=== PATIENT | female | born 1985 | race Asian ===

== ENCOUNTER 2019-07-19 14:46 | Emergency (ER) | payer BC ==
[~2019-07-19] VITALS: Ht 152.4 cm; Wt 74.1 kg
[2019-07-19 14:57] VITALS: BP 108/70; TEMP 97.9
[2019-07-19 17:34] LABS: BASO % 0.2 % (0.0-2.0); EOS # 0.1 (0.0-0.7); EOS % 0.9 % (0-4.0); GRAN # 8.7 (1.4-6.5); GRAN % 86.9 % (42.2-75.2); HEMATOCRIT 38.4 % (37.0-47.0); HEMOGLOBIN 12.6 g/dl (12.5-16.0); LYMPH # 0.8 (1.2-3.4); LYMPH % 7.7 % (20.0-51.0); MEAN CELL VOLUME 90 fl (80.0-100.0); MEAN CORPUSCULAR HEMOGLOBIN 29 pg (27.0-31.0); MEAN CORPUSCULAR HGB CONC 33 g/dl (33.0-37.0); MONO # 0.3 (0.1-0.6); MONO % 3.4 % (1.7-9.3); PLATELET COUNT 222 K/mm3 (130-400); RED BLOOD COUNT 4.28 M/mm3 (4.10-5.30); REDCELL DISTRIBUTION WIDTH-CV 13.5 % (11.5-14.5)
[2019-07-19] MEDS ORDERED: PRENATAL TABLET PO (17:40)
[2019-07-19 17:48] LABS: ALBUMIN 3.9 gm/dL (3.5-5.0); BILIRUBIN,TOTAL 0.7 mg/dL (0.0-1.0); CREATININE, serum 0.36 (0.52-1.25); TOTAL PROTEIN 7.4 gm/dL (6.4-8.2)
[2019-07-19 18:47] LABS: COLLECTION METHOD CLEAN CATCH
[2019-07-19 18:55] LABS: MUCOUS Present /lpf; PH 6 (5-8); URINE APPEARANCE Hazy; URINE BACTERIA Rare /hpf; URINE BILIRUBIN Negative (NEGATIVE); URINE BLOOD Negative (NEGATIVE); URINE COLOR Amber; URINE GLUCOSE Negative (NEGATIVE); URINE KETONE 2+ (NEGATIVE); URINE LEUKOCYTE ESTERASE Negative (NEGATIVE); URINE NITRATE Negative (NEGATIVE); URINE PROTEIN(semi-quant) 1+ (NEGATIVE)
[2019-07-19] MEDS ORDERED: MACROBID 1100 MG/CAP PO (19:36)
[2019-07-19] MEDS ORDERED: PHENERGAN 25 TA25 MG PO (19:36)
[2019-07-19] MEDS ORDERED: ZOFRAN 4MG T4 MG/TAB PO (19:36)
[2019-07-19 19:45] VITALS: PULSE 98
== END 2019-07-19 19:45 | disposition home or self-care (01) ==
LOC: COL.ER 14:46
PROVIDERS: Emergency Medicine
DX: O21.9 Vomiting of pregnancy, unspecified (principal); O23.593 Infection of other part of genital tract in pregnancy, third trimester; R82.71 Bacteriuria; Z3A.30 30 weeks gestation of pregnancy
CPT/HCPCS: J2405; J7030

== ENCOUNTER → 2019-07-31 | Outpatient (CLI) | payer BC ==
[~2019-07-31] MED LIST: MACROBID 1100 MG/CAP PO; MOTRIN 800800 MG/TAB PO; PERCOCET 325 MG1 TA2 PO; PHENERGAN 25 TA25 MG PO; PRENATAL TABLET PO; PRIL40 PO; ZOFRAN 4MG T4 MG/TAB PO
== END ==
LOC: DIA.ED
DX: O24.419 Gestational diabetes mellitus in pregnancy, unspecified control (principal)
CPT/HCPCS: G0108

== ENCOUNTER → 2019-08-14 | Outpatient (CLI) | payer BC | LOC: DIA.ED 11:42 | DX: O24.419 Gestational diabetes mellitus in pregnancy, unspecified control (principal); Z79.4 Long term (current) use of insulin | CPT/HCPCS: G0108 ==

== ENCOUNTER 2019-08-29 13:20 | Outpatient (CLI) | payer BC ==
[~2019-08-29] VITALS: Ht 152.4 cm; Wt 75.5 kg
--- NOTE | 2019-08-29 13:15 | NUR ---
Patient arrives ambulatory with spouse with complaints of "constant abdominal pain since yesterday". Patient states the pain is always the same and does not come and go. Patient denies ROM or vaginal bleeding and reports normal movement. Patient states she has had three normal bowel movements today, no constipation. Patient changes into gown, EFM explained and placed. VSS. 1320- SVE /-3, unchanged from last office exam. Patient repositioned WL. Assessment completed. When patient winces with pain RN palpates abdomen, noted soft. See physician notification. Patient updated on plan of care, Tylenol given per order. See EMAR.
[~2019-08-29 13:20] MED LIST changes: -MOTRIN 800800 MG/TAB PO; -PERCOCET 325 MG1 TA2 PO; -PRIL40 PO
[2019-08-29 13:25] VITALS: BP 120/80; PULSE 72; TEMP 97.5
[2019-08-29 14:00] VITALS: BP 120/80; PULSE 72; TEMP 97.5
[2019-08-29 14:01] LABS: COLLECTION METHOD CLEAN CATCH
[2019-08-29 14:05] LABS: BASO % 0.2 % (0.0-2.0); EOS # 0.8 (0.0-0.7); EOS % 8.8 % (0-4.0); GRAN # 6.4 (1.4-6.5); GRAN % 68.4 % (42.2-75.2); HEMATOCRIT 42.5 % (37.0-47.0); LYMPH # 1.5 (1.2-3.4); LYMPH % 16.4 % (20.0-51.0); MEAN CELL VOLUME 89 fl (80.0-100.0); MEAN CORPUSCULAR HEMOGLOBIN 29 pg (27.0-31.0); MEAN CORPUSCULAR HGB CONC 33 g/dl (33.0-37.0); MEAN PLATELET VOLUME 10.9 fl (7.4-10.4); MONO # 0.6 (0.1-0.6); MONO % 5.9 % (1.7-9.3); PLATELET COUNT 245 K/mm3 (130-400); REDCELL DISTRIBUTION WIDTH-CV 13.5 % (11.5-14.5)
[2019-08-29 14:15] LABS: ALBUMIN 3.8 gm/dL (3.5-5.0); BILIRUBIN,TOTAL 0.4 mg/dL (0.0-1.0); CALCIUM 9.5 mg/dL (8.4-10.2); CREATININE, serum 0.44 (0.52-1.25); POTASSIUM 4.1 mmol/L (3.4-5.0); TOTAL PROTEIN 7.3 gm/dL (6.4-8.2)
[2019-08-29 14:16] LABS: PH 7 (5-8); SQUAMOUS EPITHELIAL 0-2 /hpf; URINE APPEARANCE Clear; URINE BACTERIA Rare /hpf; URINE BILIRUBIN Negative (NEGATIVE); URINE BLOOD Negative (NEGATIVE); URINE COLOR Straw; URINE GLUCOSE Negative (NEGATIVE); URINE KETONE Negative (NEGATIVE); URINE LEUKOCYTE ESTERASE Negative (NEGATIVE); URINE NITRATE Negative (NEGATIVE); URINE PROTEIN(semi-quant) Negative (NEGATIVE); URINE RBC 0-2 /hpf; URINE UROBILINOGEN Negative (NEGATIVE)
--- NOTE | 2019-08-29 14:40 | NUR ---
SVE unchanged. Patient reports pain is still the same and constant. States it does not come and go. See physician notification. Patient updated on plan of care for GI cocktail when available.
[2019-08-29] MEDS ORDERED: PRIL40 PO (14:41)
--- NOTE | 2019-08-29 15:28 | NUR ---
GI cocktail given per order.
--- NOTE | 2019-08-29 15:55 | NUR ---
Patient sleeping. When awakened, states pain is "almost all of the way gone" and she feels much better. Denies PETERSON smart. See physician notification.
[2019-08-29 16:04] VITALS: BP 122/79; PULSE 69
--- NOTE | 2019-08-29 16:11 | NUR ---
Patient given dc instructions. Reviewed meds at home, labor precautions and kick counts. Leaves ambulatory with spouse.
== END 2019-08-29 16:15 | disposition home or self-care (01) ==
LOC: LDRO 13:20
PROVIDERS: Obstetrics & Gynecology
DX: O26.893 Other specified pregnancy related conditions, third trimester (principal); Z3A.35 35 weeks gestation of pregnancy

== ENCOUNTER 2019-09-14 07:11 | Inpatient (IN) | payer BC ==
[~2019-09-14] VITALS: Ht 152.5 cm; Wt 76.4 kg
[2019-09-14] VITALS (51 sets, daily range): BP systolic 87–119; BP diastolic 48–92; PULSE 65–94; TEMP 97.6–99
[~2019-09-14 07:11] MED LIST changes: +PRIL40 PO
[2019-09-14 08:00] LABS: BASO % 0.3 % (0.0-2.0); EOS # 0.2 (0.0-0.7); EOS % 1.9 % (0-4.0); GRAN # 5.8 (1.4-6.5); GRAN % 74.6 % (42.2-75.2); HEMATOCRIT 39.8 % (37.0-47.0); HEMOGLOBIN 13.3 g/dl (12.5-16.0); LYMPH # 1.3 (1.2-3.4); LYMPH % 17.2 % (20.0-51.0); MEAN CELL VOLUME 88 fl (80.0-100.0); MEAN CORPUSCULAR HEMOGLOBIN 30 pg (27.0-31.0); MEAN CORPUSCULAR HGB CONC 33 g/dl (33.0-37.0); MONO # 0.4 (0.1-0.6); MONO % 5.7 % (1.7-9.3); PLATELET COUNT 203 K/mm3 (130-400); RED BLOOD COUNT 4.51 M/mm3 (4.10-5.30); REDCELL DISTRIBUTION WIDTH-CV 13.4 % (11.5-14.5)
[2019-09-15 03:45] VITALS: BP 104/70; PULSE 80; TEMP 98.3
[2019-09-15 07:30] VITALS: BP 109/64; PULSE 80; TEMP 98.5
[2019-09-15] MEDS ORDERED: PERCOCET 325 MG1 TA2 PO (10:54)
[2019-09-15] MEDS ORDERED: MOTRIN 800800 MG/TAB PO (10:54)
--- NOTE | 2019-09-15 11:01 | NUR ---
LOW TRANSVERSE INCISION BANDAGE REMOVED. EDGES WELL APPROXIMATED, NO SWELLING NOTED.
[2019-09-15 12:30] VITALS: BP 113/70; PULSE 82; TEMP 98.3
[2019-09-15 16:00] VITALS: BP 115/74; PULSE 84
[2019-09-15 20:00] VITALS: BP 108/61; PULSE 81; TEMP 98.7
[2019-09-16 08:00] VITALS: BP 106/73; PULSE 67; TEMP 98.3
== END 2019-09-16 10:55 | disposition home or self-care (01) | DRG 788 ==
LOC: LDR 07:11 → OB 08:06
PROVIDERS: ADMIT Obstetrics & Gynecology
PROC: 10D00Z1 Extraction of Products of Conception, Low, Open Approach (ICD-10-PCS; principal; 2019-09-14)
PROC: 10907ZC Drainage of Amniotic Fluid, Therapeutic from Products of Conception, Via Natural or Artificial Opening (ICD-10-PCS; 2019-09-14)
PROC: 3E033VJ Introduction of Other Hormone into Peripheral Vein, Percutaneous Approach (ICD-10-PCS; 2019-09-14)
DX: O99.62 Diseases of the digestive system complicating childbirth (principal); O99.214 Obesity complicating childbirth; E66.9 Obesity, unspecified; O24.420 Gestational diabetes mellitus in childbirth, diet controlled; K21.9 Gastro-esophageal reflux disease without esophagitis; O62.1 Secondary uterine inertia; O76 Abnormality in fetal heart rate and rhythm complicating labor and delivery; Z3A.38 38 weeks gestation of pregnancy; Z37.0 Single live birth
CPT/HCPCS: J0690; J1885; J2405; J2590; J7120

== ENCOUNTER → 2021-08-14 | Outpatient (CLI) | payer OTHER ==
[~2021-08-14] MED LIST changes: +MOTRIN 800800 MG/TAB PO; +PERCOCET 325 MG1 TA2 PO
== END ==
LOC: DIA.ED 09:25
DX: O24.419 Gestational diabetes mellitus in pregnancy, unspecified control (principal); Z79.4 Long term (current) use of insulin
CPT/HCPCS: G0108

== ENCOUNTER → 2021-09-04 | Outpatient (CLI) | payer OTHER | LOC: DIA.ED 10:39 | DX: O24.419 Gestational diabetes mellitus in pregnancy, unspecified control (principal) | CPT/HCPCS: G0108 ==

== ENCOUNTER 2021-09-11 16:45 | Outpatient (CLI) | payer OTHER ==
[~2021-09-11] VITALS: Ht 152.5 cm; Wt 85.0 kg
--- NOTE | 2021-09-11 16:50 | NUR ---
469772.4, arrives on unit with c/o left flank pain. Rating pain 10/10. Pt writhing in bed. Pt reports normal movement. Denies VB, LOF, or regular contractions. 1651EFM explained and placed. VS obtained. Assessment completed. 1656 SVE CL/TH/HI.
[2021-09-11 17:15] VITALS: BP 120/80; PULSE 92
[2021-09-11 17:28] LABS: COLLECTION METHOD CATHETER
[2021-09-11 17:35] LABS: BASO % 0.4 % (0.0-2.0); EOS # 0.1 K/mm3 (0.0-0.7); EOS % 1.1 % (0.0-4.0); GRAN # 6.2 K/mm3 (1.4-6.5); GRAN % 78.7 % (42.2-75.2); HEMATOCRIT 38.5 % (37.0-47.0); HEMOGLOBIN 12.9 g/dl (12.5-16.0); LYMPH # 0.9 K/mm3 (1.2-3.4); LYMPH % 11.6 % (20.0-51.0); MEAN CELL VOLUME 85 fl (80.0-100.0); MEAN CORPUSCULAR HEMOGLOBIN 29 pg (27-31); MEAN CORPUSCULAR HGB CONC 34 g/dl (33.0-37.0); MEAN PLATELET VOLUME 10.1 fl (7.4-10.4); MONO # 0.6 K/mm3 (0.1-0.6); MONO % 7.4 % (1.7-9.3); PLATELET COUNT 222 K/mm3 (130-400); RED BLOOD COUNT 4.53 M/mm3 (4.10-5.30)
[2021-09-11 17:45] VITALS: BP 130/86; PULSE 96; TEMP 98.3
[2021-09-11 17:45] LABS: MUCOUS Present (NOT PRESENT); PH 6 (5-8); URINE APPEARANCE Hazy (CLEAR/HAZY); URINE BACTERIA None Seen /hpf (NONE SEEN); URINE BILIRUBIN Negative (NEGATIVE); URINE BLOOD 1+ (NEGATIVE); URINE COLOR Yellow (YELLOW); URINE GLUCOSE 1+ (NEGATIVE); URINE KETONE Trace (NEGATIVE); URINE LEUKOCYTE ESTERASE Negative (NEGATIVE); URINE NITRATE Negative (NEGATIVE); URINE PROTEIN(semi-quant) 2+ (NEGATIVE); URINE RBC 20-50 /hpf (0-2); URINE UROBILINOGEN Negative (NEGATIVE)
[2021-09-11 17:51] LABS: ALBUMIN 2.8 gm/dL (3.5-5.0); BILIRUBIN,TOTAL 0.4 mg/dL (0.2-1.2); CALCIUM 8.6 mg/dL (8.4-10.2); CREATININE, serum 0.62 mg/dL (0.57-1.11); POTASSIUM 3.9 mmol/L (3.5-4.5); TOTAL PROTEIN 7.1 gm/dL (6.2-8.1)
[2021-09-11 18:15] VITALS: BP 138/89; PULSE 108
[2021-09-11 18:30] VITALS: BP 134/89; PULSE 111
--- NOTE | 2021-09-11 18:40 | NUR ---
1840 WRITHING IN BED AND VERY UNCOMFORTABLE. STATES SEVERE PAIN IN LEFT FLANK AREA. MORPHINE 5 MG IV GIVEN. 1909 UP TO BR AND VOIDED. URINE CLEAR, LIGHT YELLOW. URINE STRAINED. RETURNED TO BED. STATES IS FEELING MUCH BETTER. NO PAIN AT THIS TIME.
[2021-09-11 20:00] VITALS: BP 113/71; PULSE 103; TEMP 97.8
--- NOTE | 2021-09-11 21:45 | NUR ---
1930 LIGHTS OUT AND TRYING TO REST ON SIDE. UNABLE TO PICK FHT'S UP CONTINUOUSLY WHILE LYING ON SIDE. DR CORRALES NOTIFIED AND ORDER GIVEN THAT MAY HAVE EFM OFF AND DO A 20 MINUTE STRIP EVERY FOUR HOURS 2009 UP TO BR AND VOIDED. ALL URINE STRAINED. EFM OFF TO CHANGE POSITION TO SLEEP. NO C/O ANY PAIN AT THIS TIME.
[2021-09-12] VITALS: BP 113/66; PULSE 68; TEMP 97.7
--- NOTE | 2021-09-12 | NUR ---
0000 UP TO BR AND VOIDED. ALL URINE STRAINED. INSTRUCTED ON NPO. IV CONTS TO INFUSE. HAVING NO PAIN AT ALL AT THIS TIME.
--- NOTE | 2021-09-12 02:00 | NUR ---
0200 OCC CONTRACTION NOTED. PT ASLEEP
--- NOTE | 2021-09-12 04:00 | NUR ---
0400 UP TO BR AND EFM REAPPLIED WHEN RETURN TO BED. NO C/O ANY PAIN OR CONTRACTIONS. HAS BEEN SLEEPING. WONDERING ABOUT SON AT FRIENDS HOUSE AND IS HOPING TO GO HOME THIS MORNING. IV CONTS TO INFUSE
[2021-09-12 04:20] VITALS: BP 103/66; PULSE 77; TEMP 98.2
--- NOTE | 2021-09-12 04:40 | NUR ---
0440 EFM OFF. ON SIDE SLEEPING.
[2021-09-12 06:30] VITALS: BP 104/69; PULSE 74; TEMP 98.4
[2021-09-12 07:30] VITALS: PULSE 76
--- NOTE | 2021-09-12 07:44 | NUR ---
0640 EFM ON FHT 125 BABY VERY ACTIVE. ACCELERATIONS NOTED. DR CID CALLED AND UPDATED. PATIENT FEELS MUCH BETTER AND WOULD LIKE TO GO HOME. ORDERS TO GET A 20 MIN STRIP AND DISMISS TO HOME. NO OTHER CHANGES. IVF HEPLOCK AND HEPLOCK DC'D AT THIS TIME.
--- NOTE | 2021-09-12 07:47 | NUR ---
0730 BS 110 THIS AM. ALL DISCHARGE INSTRUCTIONS GIVEN TO PATIENT AND . WITH VERBAL UNDERSTANDING. DISMISSED TO HOME
== END 2021-09-12 07:56 | disposition home or self-care (01) ==
LOC: LDRO 16:45 → LDR 17:00 → LDRO 09-12 07:56
PROVIDERS: Obstetrics & Gynecology
DX: O26.893 Other specified pregnancy related conditions, third trimester (principal); R10.9 Unspecified abdominal pain; Z3A.36 36 weeks gestation of pregnancy
CPT/HCPCS: OP; J2270; J7030; J7120

== ENCOUNTER 2021-09-30 22:01 | Inpatient (IN) | payer OTHER ==
[~2021-09-30] VITALS: Ht 152.4 cm; Wt 84.0 kg
--- NOTE | 2021-09-30 22:08 | NUR ---
2207- Pt arrives to OB floor via w/c, accompanied by spouse. RN escorted to room LDR5 and instructions given to pt. Pt c/o ctx that started around 1800. Pt reports taking Tylenol at 1840 and it helped for 1 hour but still having pain. +FM, +CTX, -VB, -LOF. Oriented to room. 2219- EFM and toco applied. VSS. Afebrile. Rates pain 11/28. 2229- Attempted to check pt for dilation but pt unable to tolerate cervical exam. Pt doris about every 2-3 minutes and palpate moderate. 2239- Pt dilated FT. 2244- Dr. Chou called and notified. Orders rec'd. Up to BR. 2300- Bedside glucose of 81. Pt has GDM and reports she does not take any medicines but is diet controlled 2312- #18g Left lateral AC IV started, x1 attempt, successful, labs drawn w/ IV start. Pt tolerated well w/o any difficulties. IV started by Jacoby Jackson RN 2319- 1/2 NS bolus started and Benadryl po given.Pt reports the pain is becoming more increased and rates the pain 01/28. 233- Dr. Chou called about pt's pain and still consistently contracted. C- Section called at this time.' 2355- Monitors removed to go to OR. Pt able to ambulate to OR. Spouse remains at bs.
[2021-09-30 22:30] VITALS: BP 137/81; PULSE 84; TEMP 98.3
[2021-09-30 23:50] VITALS: BP 137/81; PULSE 84; TEMP 98.3
[2021-09-30 23:53] LABS: BASO % 0.3 % (0.0-2.0); EOS # 0.1 K/mm3 (0.0-0.7); EOS % 1.1 % (0.0-4.0); GRAN # 7.6 K/mm3 (1.4-6.5); GRAN % 74.7 % (42.2-75.2); HEMATOCRIT 38.5 % (37.0-47.0); LYMPH # 1.6 K/mm3 (1.2-3.4); LYMPH % 15.6 % (20.0-51.0); MEAN CELL VOLUME 85 fl (80.0-100.0); MEAN CORPUSCULAR HEMOGLOBIN 29 pg (27-31); MEAN CORPUSCULAR HGB CONC 34 g/dl (33.0-37.0); MEAN PLATELET VOLUME 11.7 fl (7.4-10.4); MONO # 0.8 K/mm3 (0.1-0.6); MONO % 7.9 % (1.7-9.3); PLATELET COUNT 198 K/mm3 (130-400); RED BLOOD COUNT 4.51 M/mm3 (4.10-5.30); REDCELL DISTRIBUTION WIDTH-CV 14.2 % (11.5-14.5)
[2021-10-01] VITALS (17 sets, daily range): BP systolic 84–126; BP diastolic 34–76; PULSE 56–82; TEMP 97.5–98.4
[2021-10-01] MEDS ORDERED: PERCOCET 325 MG1 TA2 PO (11:27)
[2021-10-01] MEDS ORDERED: MOTRIN 800800 MG/TAB PO (11:27)
--- NOTE | 2021-10-01 15:46 | NUR ---
1000PATIENT REMINDED THAT SHE NEEDED TO LEAVE COLLECTION HAT IN THE TOILET. PATIENT VERBALIZED THAT SHE MOVED IT BECAUSE SHE "FELT LIKE I COULD POOP".
[2021-10-02 08:00] VITALS: BP 114/67; PULSE 78; TEMP 97.7
--- NOTE | 2021-10-02 13:33 | NUR ---
Discharge instructions reviewed with pt and pt's spouse regarding incision care, pain control, follow-up appointments and when to see physician. Pt and spouse verbalize understanding, deny questions or concerns at this time. Pt eating lunch then will ready for discharge.
--- NOTE | 2021-10-02 14:28 | NUR ---
Pt discharged home, ambulates out of facility accompanied by this nurse and pt's spouse and baby.
== END 2021-10-02 14:28 | disposition home or self-care (01) | DRG 788 ==
LOC: LDRO 22:01 → LDR 22:32 → LDRO 23:42 → LDR 23:43 → OB 23:43
PROVIDERS: ADMIT Obstetrics & Gynecology
PROC: 10D00Z1 Extraction of Products of Conception, Low, Open Approach (ICD-10-PCS; principal; 2021-10-01)
DX: O34.211 Maternal care for low transverse scar from previous cesarean delivery (principal); O99.214 Obesity complicating childbirth; O24.420 Gestational diabetes mellitus in childbirth, diet controlled; O69.81X0 Labor and delivery complicated by cord around neck, without compression, not applicable or unspecified; O75.89 Other specified complications of labor and delivery; G43.909 Migraine, unspecified, not intractable, without status migrainosus; Z3A.39 39 weeks gestation of pregnancy; Z37.0 Single live birth
CPT/HCPCS: OP; J0690; J1885; J2405; J2590; J7120

== ENCOUNTER → 2022-01-13 | Outpatient (CLI) | payer OTHER | LOC: COL.RAD 11:41 | DX: R10.9 Unspecified abdominal pain (principal); Z87.442 Personal history of urinary calculi ==

== ENCOUNTER 2023-12-19 18:13 | Observation (INO) | payer OTHER ==
[~2023-12-19] VITALS: Ht 149.9 cm; Wt 77.9 kg
[~2023-12-19 18:13] MED LIST changes: +NORCO 325 MG-51 TAB PO
[2023-12-19] MEDS ORDERED: NS 1,000 ML IV ONE ×2 (18:45→23:00)
[2023-12-19] MEDS ORDERED: Morphine 4 MG/ML VIAL IV PRN ×2 (18:45→23:30)
[2023-12-19] MEDS ORDERED: Ondansetron 4 MG/2 ML VIAL IV ONE (18:45)
[2023-12-19 19:03] LABS: BASO # 0.1 K/mm3 (0.0-0.2); BASO % 0.4 % (0.0-2.0); EOS # 0.1 K/mm3 (0.0-0.7); EOS % 0.6 % (0.0-4.0); GRAN # 11.1 K/mm3 (1.4-6.5); GRAN % 83.4 % (42.2-75.2); HEMATOCRIT 41.6 % (37.0-47.0); HEMOGLOBIN 13.5 g/dl (12.5-16.0); LYMPH # 1.5 K/mm3 (1.2-3.4); LYMPH % 11.6 % (20.0-51.0); MEAN CELL VOLUME 85 fl (80.0-100.0); MEAN CORPUSCULAR HEMOGLOBIN 28 pg (27-31); MEAN CORPUSCULAR HGB CONC 33 g/dl (33.0-37.0); MEAN PLATELET VOLUME 9.9 fl (7.4-10.4); MONO # 0.5 K/mm3 (0.1-0.6); MONO % 3.6 % (1.7-9.3); PLATELET COUNT 323 K/mm3 (130-400); RED BLOOD COUNT 4.91 M/mm3 (4.10-5.30); REDCELL DISTRIBUTION WIDTH-CV 12.3 % (11.5-14.5)
[2023-12-19 19:15] LABS: ALBUMIN 4.5 g/dL (3.5-5.0); BILIRUBIN,TOTAL 0.6 mg/dL (0.2-1.2); CALCIUM 8.9 mg/dL (8.4-10.2); CREATININE, serum 0.69 mg/dL (0.57-1.11); POTASSIUM 3.9 mEq/L (3.5-4.5); TOTAL PROTEIN 8.4 g/dl (6.2-8.1)
[2023-12-19 19:44] LABS: COLLECTION METHOD CLEAN CATCH
[2023-12-19 19:49] LABS: PH 6.5 (5.0-8.5); URINE APPEARANCE CLEAR (CLEAR/HAZY); URINE BLOOD NEGATIVE (NEGATIVE); URINE COLOR YELLOW (YELLOW); URINE GLUCOSE NEGATIVE (NEGATIVE); URINE KETONE 2+ (NEGATIVE); URINE NITRATE NEGATIVE (NEGATIVE); URINE PROTEIN(semi-quant) NEGATIVE (NEGATIVE); URINE UROBILINOGEN 0.2 E.U/dL (0.2-1.0)
[2023-12-19] MEDS ORDERED: HYDROmorphone 0.5 MG/0.5 ML SYRINGE IV ONE ×2 (20:00→22:45)
[2023-12-19] MEDS ORDERED: Iohexol 300 - 100 ML VIAL IV ONE (20:59)
[2023-12-19] MEDS ORDERED: NS 50 ML IV ONE (21:01)
[2023-12-19 21:53] LABS: C-REACTIVE PROTEIN 1.3 mg/dL (0.00-0.50)
[2023-12-19] MEDS ORDERED: LR 1,000 ML IV SCH (23:30)
[2023-12-19] MEDS ORDERED: Ondansetron 4 MG/2 ML VIAL IV PRN (23:30)
[2023-12-20] VITALS (8 sets, daily range): BP systolic 104–134; BP diastolic 71–84; PULSE 68–87; TEMP 97.7–98.3
[2023-12-20] MEDS ORDERED: cefTRIAXone 2 G in Water For Injection,Sterile 20 ML IV ONE (07:00)
--- NOTE | 2023-12-20 07:30 | NUR ---
JOSH AWAKE AND ALERT, SITTING UP IN BED. CALL LIGHT WITHIN REACH. IVF INFUSING. PATIENT AWARE OF NPO STATUS AND CONSENT SIGNED AND PLACED ON THE CHART.
--- NOTE | 2023-12-20 09:39 | NUR ---
Initial visit; Patient thanked Biomedical Repair Technician for introducing herself, also stating that she knew Surya is Buddist. Leslye thanked Biomedical Repair Technician for wishing her well and offering spiritual care.
--- NOTE | 2023-12-20 09:46 | NUR ---
steel layout worker met with pt to discuss intake information. She reports to live with her , Connor [phone] and family in [place]. She sees JANNETTE Portillo and obtains medications from [facility] with no difficulties. She confirmed to have R insurance. She does not have a DPOA-HC. She reports to be independent with ADLS and uses no DME. No further questions. Discharge Plan: home
[2023-12-20] MEDS ORDERED: Indocyanine Green 6.25 MG in Water For Injection,Sterile 1.25 ML IV SCH (12:00)
--- NOTE | 2023-12-20 12:07 | NUR ---
IC GREEN ADMINISTERED. PATIENT AWAKE ALERT AND ORIENTED, RESTING IN BED. CALL LIGHT WITHIN REACH. VSS. PAIN WELL CONTROLLED WITH PRN MORPHINE.
[2023-12-20] MEDS ORDERED: LR 1,000 ML IV SCH (13:00)
--- NOTE | 2023-12-20 15:00 | NUR ---
patient taken to pre op, family at bedside.
[2023-12-20] MEDS ORDERED: Lidocaine PF 2% (20 MG/ML) 5 ML VIAL ONE (15:01)
[2023-12-20] MEDS ORDERED: fentaNYL 50 MCG/ML 5 ML VIAL ONE (15:02)
[2023-12-20] MEDS ORDERED: Rocuronium 50 MG/5 ML Multi-Dose VIAL ONE (15:02)
[2023-12-20] MEDS ORDERED: dexAMETHasone 10 MG/ML VIAL ONE (15:33)
[2023-12-20] MEDS ORDERED: ePHEDrine 50 MG/ML VIAL ONE (15:33)
[2023-12-20] MEDS ORDERED: Ondansetron 4 MG/2 ML VIAL ONE (15:33)
[2023-12-20] MEDS ORDERED: Meperidine 50 MG/ML 1 ML VIAL IV PRN (15:45)
[2023-12-20] MEDS ORDERED: fentaNYL 50 MCG/ML 1 ML SYRINGE/VIAL [PACU/SDC ONLY] IV PRN (15:45)
[2023-12-20] MEDS ORDERED: HYDROmorphone 1 MG/1 ML SYRINGE [PACU/SDC ONLY] IV PRN (15:45)
[2023-12-20] MEDS ORDERED: Ondansetron 4 MG/2 ML VIAL IV PRN ×2 (15:45→16:45)
[2023-12-20] MEDS ORDERED: Topical Skin Adhesive 1 EACH (1 ML) TOP ONE (16:10)
[2023-12-20] MEDS ORDERED: Ketorolac 30 MG/ML VIAL ONE (16:12)
[2023-12-20] MEDS ORDERED: NORCO 325 MG-51 TAB PO (16:43)
[2023-12-20] MEDS ORDERED: Acetaminophen 325 MG TAB PO PRN (16:45)
[2023-12-20] MEDS ORDERED: Ibuprofen 600 MG TAB PO PRN (16:45)
--- NOTE | 2023-12-20 17:05 | NUR ---
CALL RECIEVED FROM DR JEFFREY NURSE FROM OFFICE. PATIENT HAS FOLLOW UP APT 01/05 @3185. APT PLACED ON DISCHARGE PAPERWORK.
--- NOTE | 2023-12-20 17:45 | NUR ---
JOSH ARRIVED FROM PACU AROUND 1730 (SAME TIME MY ADMISSION) THEREFOR PROJECT CONTROL ANALYST HOPE WAS THERE TO MEET PATIENT, IT WAS REPORTED TO ME THAT PATIENT WAS AWAKE AND ALERT, LAP SITES CDI, PATIENT VOICING NO PAIN AT THIS TIME AND IS SITTING UP EATING CRACKERS AND DRINIKING WATER.
--- NOTE | 2023-12-20 18:30 | NUR ---
PATIENT VOICES BEING READY FOR DISCHAGRE. VSS. PATIENTS FAMILY AT BEDSIDE. PATIENT STATED SHE HAS SOME OF THE SAME MEDICATION FOR PAIN AT HOME AND WILL CASINO FLOOR WALKER HER NEW SCRIPT IN THE MORNING. PATIENTS IV REMOVED. LAP SITES CDI -CLOSED WITH GLUE.
--- NOTE | 2023-12-20 18:45 | NUR ---
PATIENT DISCHARGE INSTRUTIONS AND EDUCATION GIVEN. PATIENT DENIES ANY NEEDS AT THIS TIME. JOSH VERBALIZES UNDERSTANDING TO FOLLOW UP INSTRUFTIONS AND S/P PARMINDER VALERIO DC INSTRUCITONS JOHS TAKEN TO ER ENTRANCE WHERE SHE LEFT IN STABLE CONDITOIN WITH HER .
== END 2023-12-20 19:28 | disposition home or self-care (01) ==
LOC: COL.ER 18:13 → MEDICAL 12-20 02:18
PROVIDERS: Nurse Practitioner Family; ADMIT Surgery
DX: K80.12 Calculus of gallbladder with acute and chronic cholecystitis without obstruction (principal); K82.1 Hydrops of gallbladder; K21.9 Gastro-esophageal reflux disease without esophagitis
CPT/HCPCS: G0378; J0690; J0696; J1100; J1170; J1885; J2270; J2405; J2543; J2704; J3010; J7030; J7120; Q9967